=== PATIENT | male | born 1990 | race American Indian/Alaskan Native ===

== ENCOUNTER 2020-02-09 09:25 | Outpatient (CLI) | payer OTHER ==
--- NOTE | 2020-02-09 10:35 | Ultrasound Report ---
LIMITED RUQ ABDOMINAL ULTRASOUND INDICATION: CANCER FOCUS ON LIVER. COMPARISON: No relevant prior imaging study available. FINDINGS: Pancreas: Visualized portions show no significant abnormality. Abdominal Aorta: No significant abnormality. IVC: No significant abnormality. Liver: The liver measures 16.4 cm in length. No significant abnormality. Normal hepatopedal blood fl ow in the main portal vein. Gallbladder: No significant abnormality. Bile ducts: No significant abnormality. Common bile duct measures 3 mm. Right kidney: There is a solid-appearing mass in the midpole the right kidney measuring 2.3 cm in max imal dimension. Free fluid: None. Additional Findings: None. IMPRESSION: 1. No obvious mass identified in the liver as was mentioned in the history; however, there is a solid mass in the right kidney. Recommend follow-up multiphase CT of the abdomen with IV contrast for furt her evaluation of the right kidney and to further evaluate the liver. Signer Name: Atilio Simmons MD Signed: 02/09/2020 10:31 AM Workstation Name: [id number]
== END 2020-02-09 09:26 | disposition home or self-care (01) ==
LOC: US 09:25
PROVIDERS: ATTEND Specialist
DX: N28.89 Other specified disorders of kidney and ureter (principal)
CPT/HCPCS: 76705

== ENCOUNTER 2020-06-18 11:18 | Outpatient (CLI) | payer OTHER ==
[2020-06-18 12:18] LABS: Blood Urea Nitrogen 12 mg/dL (9-20)
== END 2020-06-18 11:19 | disposition home or self-care (01) ==
LOC: CT 11:18
PROVIDERS: ATTEND Specialist
DX: N20.0 Calculus of kidney (principal)
CPT/HCPCS: 36415; 74177; 82565; 84520; Q9967